=== PATIENT | female | born 1960 | race Caucasian/White ===

== ENCOUNTER 2017-03-10 06:49 | Emergency (ER) | payer SELFPAY ==
[~2017-03-10] VITALS: Ht 160 cm; Wt 70.3 kg
[~2017-03-10 06:49] MED LIST: ERYT1OIN6 EACHEYE
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
[2017-03-10 07:43] VITALS: BP 162/74
== END 2017-03-10 07:50 | disposition home or self-care (01) ==
LOC: ER 06:49
DX: S90.32XA Contusion of left foot, initial encounter (principal); Z88.0 Allergy status to penicillin; W22.8XXA Striking against or struck by other objects, initial encounter; Y93.89 Activity, other specified; Y92.89 Other specified places as the place of occurrence of the external cause; Y99.8 Other external cause status
CPT/HCPCS: 73630; 99284

== ENCOUNTER → 2021-09-18 | Outpatient (CLI) | payer OTHER ==
[2018-12-16 19:00] VITALS: BP 139/74
[~2021-09-18] MED LIST changes: +ERYT1OIN3 EACHEYE; -ERYT1OIN6 EACHEYE
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
== END ==
LOC: RAD 10:51
PROVIDERS: ATTEND Family Medicine
DX: Z02.71 Encounter for disability determination (principal); M17.11 Unilateral primary osteoarthritis, right knee; Z18.10 Retained metal fragments, unspecified
CPT/HCPCS: 73560